=== PATIENT | male | born 1990 | race Caucasian/White ===

== ENCOUNTER 2021-01-14 00:49 | Emergency (ER) | payer SELFPAY ==
[~2021-01-14] VITALS: Ht 185.4 cm; Wt 74.8 kg
[2021-01-14 01:06] VITALS: BP 134/64
== END 2021-01-14 01:15 | disposition left against medical advice (07) ==
LOC: ER 00:51
DX: Z53.21 Procedure and treatment not carried out due to patient leaving prior to being seen by health care provider